=== PATIENT | female | born 1990 | race Hispanic/Latino ===

== ENCOUNTER 2017-04-15 17:46 | Emergency (ER) | payer BC ==
[2017-04-15 17:57] VITALS: BP 132/83; PULSE 73; RESP 16; TEMP 98; O2SAT 100
--- NOTE | 2017-04-15 19:18 | ED PDOC ---
"HPI: Head Injury Time Seen by Provider: 04/15/17 18:30 Chief Complaint (Nursing): Trauma Chief Complaint (Provider): HEAD INJURY History Per: Patient (26 Y/O FEMALE HERE FOR EVALUATION OF HEAD INJURY THAT OCCURRED YESTERDAY AT [place]. STATES SHE STRUCK HEAD AGAINST EDGE OF WALL AND HAS HAD SHARP PAIN IN REGION SINCE ASSOCIATED WITH MILD SENSATION OF ' QUEASINESS.' PATIENT STATES SHE DID NOT HAVE ANY LOC. NOTES INCREASED FATIGUE AND DIFFICULTY WITH WORK ACTIVITY. NOTES PHOTOPHOBIA. TOOK TYLENOL TODAY WITH MILD ALLEVIATION OF SYMPTOMS. HAS NO H/O MIGRAINES.) Past Medical History Reviewed: Historical Data, Nursing Documentation, Vital Signs Vital Signs: Last Vital Signs Temp 98.0 F 04/15/17 17:53 Pulse 73 04/15/17 17:53 Resp 16 04/15/17 17:53 BP 132/83 04/15/17 17:53 Pulse Ox 100 04/15/17 17:53 - Family History Family History: States: No Known Family Hx - Home Medications Home Medications: Ambulatory Orders Medication Instructions Recorded Cetirizine HCl [Zyrtec] 10 mg PO DAILY #15 capsule 04/15/17 Fluticasone Propionate [Flonase] 2 spr FLORES DAILY #1 bottle 04/15/17 - Allergies Allergies/Adverse Reactions: Allergies Allergy/AdvReac Type Severity Reaction Status Date / Time No Known Allergies Allergy Verified 04/15/17 17:53 Review of Systems ROS Statement: Except As Marked, All Systems Reviewed And Found Negative Neurological: Positive for: Headache Physical Exam - Reviewed Nursing Documentation Reviewed: Yes Vital Signs Reviewed: Yes - Physical Exam Appears: Positive for: Well, Non-toxic, No Acute Distress Head Exam: Positive for: NORMAL INSPECTION, NORMOCEPHALIC. Negative for: ATRAUMATIC (POSTERIOR SCALP TENDERNESS. NO LACERATION NOTED.) Skin: Positive for: Normal Color, Warm, DRY Eye Exam: Positive for: EOMI, Normal appearance, PERRL ENT: Positive for: Normal ENT Inspection Neck: Positive for: Normal, Painless ROM Cardiovascular/Chest: Positive for: Regular Rate, Rhythm Respiratory: Positive for: CNT, Normal Breath Sounds Gastrointestinal/Abdominal: Positive for: Normal Exam, Bowel Sounds, Soft Back: Positive for: Normal Inspection Extremity: Positive for: Normal ROM Neurologic/Psych: Positive for: Alert, Oriented - Laboratory Results Urine POC: Negative - ECG O2 Sat by Pulse Oximetry: 100 - Progress ED Course And Treament: ZOFRAN 4 MG ODT D/W PATIENT RISKS OF RADIATION OF CT SCAN AND THE LOW PROBABILITY OF INTRACRANIAL INJURY SECONDARY TO THIS HEAD INJURY. D/W PATIENT POST-CONCUSSIVE SYNDROME AND SIGNS OF SEVERE HEAD TRAUMA. PATIENT WOULD LIKE HEAD CT FOR EVALUATION OF HEADACHE AND INJURY. HEAD CT: IMPRESSION: 1. No acute intracranial findings. 2. Mild mucosal thickening in the right sphenoid sinus. JUDY PEREZ | Preliminary Radiology Report MANAGER FURNITURE (QA) DISCREPANCY? If there is a discrepancy between the preliminary and final interpretation, please notify [employer] via [email or web address]. If you do not have access to our QA portal, call our QA team at [phone] CONFIDENTIALITY STATEMENT This report is intended only for the use of the referring physician, and only in accordance with law, If you received this in error, call [phone] Page 2 of 2 Thank you for allowing us to participate in the care of your patient Disposition - Clinical Impression Clinical Impression: Sinusitis, Head injury - Patient ED Disposition Is Patient to be Admitted: No - Disposition Disposition: Routine/Home Disposition Time: 20:19 Condition: FAIR Prescriptions: Cetirizine HCl [Zyrtec] 10 mg PO DAILY #15 capsule Fluticasone Propionate [Flonase] 2 spr FLORES DAILY #1 bottle Instructions: Sinusitis (ED), Post Concussion Syndrome (ED) Forms: [facility] ED School/Work Excuse"
--- NOTE | 2017-04-16 09:40 | CT ---
PROCEDURE: CT HEAD WITHOUT CONTRAST. HISTORY: HEAD INJURY COMPARISON: None available. TECHNIQUE: Axial computed tomography images were obtained through the head/brain without intravenous contrast. Radiation dose: Total exam DLP = 823.98 mGy-cm. This CT exam was performed using one or more of the following dose reduction techniques: Automated exposure control, adjustment of the mA and/or kV according to patient size, and/or use of iterative reconstruction technique. FINDINGS: HEMORRHAGE: No acute parenchymal, subarachnoid or extra-axial hemorrhage. BRAIN: No mass effect or edema. No atrophy or chronic microvascular ischemic changes. VENTRICLES: Unremarkable. No hydrocephalus. CALVARIUM: Unremarkable. PARANASAL SINUSES: Mild mucosal thickening seen within the sphenoid sinus MASTOID AIR CELLS: Unremarkable as visualized. No inflammatory changes. OTHER FINDINGS: Prominent adenoids not unusual this age group. IMPRESSION: No acute intracranial hemorrhage.
== END 2017-04-15 20:27 | disposition home or self-care (01) ==
LOC: H.ER 17:46
DX: S09.90XA Unspecified injury of head, initial encounter (principal); W22.8XXA Striking against or struck by other objects, initial encounter; J32.9 Chronic sinusitis, unspecified